=== PATIENT | male | born 1955 | race Caucasian/White ===

== ENCOUNTER → 2016-07-23 | Outpatient (CLI) | payer OTHER | LOC: BMCIMAGING 11:35 | PROVIDERS: ATTEND Family Medicine | DX: R05 Cough (principal) ==

== ENCOUNTER 2017-08-16 11:10 | Emergency (ER) | payer OTHER ==
--- NOTE | 2017-08-16 12:45 | EDPHY ---
H & P Stated Complaint: stephany hoffman with allergy to pcn at 11:00 Time Seen by Provider: 08/16/17 12:32 HPI/ROS: CHIEF COMPLAINT: "I feel fine" HISTORY OF PRESENT ILLNESS: 62-year-old male with history of right knee arthroplasty was at his dentist this morning for routine cleaning. They gave him oral amoxicillin 2 g and shortly after giving it to him saw that he had a listed penicillin allergy and recommend he go to the ER for evaluation. He is asymptomatic. He states that his listed penicillin allergy was due to an incident when he was in high school, was given penicillin and felt lightheaded, started itching. No history of anaphylaxis to penicillin. REVIEW OF SYSTEMS: A ten point review of systems was performed and is negative with the exception of the items mentioned in the HPI PAST MEDICAL & SURGICAL HISTORY: Right knee arthroplasty SOCIAL HISTORY: Nonsmoker. PHYSICAL EXAM (Prior to examination, patient consented to physical exam, hands were washed and my usual and customary physical exam procedures followed) 1) GENERAL: Well-developed, well-nourished, alert and oriented. Appears to be in no acute distress. Smiling, shakes my hand , appears well. Speaking full sentences 2) HEAD: Normocephalic, atraumatic 3) HEENT: Pupils equal, round, reactive to light bilaterally. Sclera anicteric. Airway patent. No trismus no drooling. No tonsillar or glossal enlargement. 4) NECK: Full range of motion, no meningeal signs. 5) LUNGS: Clear auscultation bilaterally, no wheezes, no rhonchi, no retractions. 6) HEART: Regular rate and rhythm, no murmur, no heave, no gallop. 7) ABDOMEN: No guarding, no rebound, no focal tenderness, negative McBurney's, negative Iraheta's, negative Rovsing's, negative peritoneal sign, 8) MUSCULOSKELETAL: Moving all extremities, no focal areas of tenderness, no obvious trauma. No peripheral edema or discoloration. 9) BACK: No CVA tenderness, no midline vertebral tenderness, no fluctuance, no step-off, no obvious trauma, no visual or palpable abnormality. 10) SKIN: No rash, no petechiae. No urticaria. 11) Psychiatric: Patient is oriented X 3, there is no agitation. DIFFERENTIAL DIAGNOSIS: In no particular order including but not limited to possible exposure to allergen, allergic reaction, anaphylaxis, urticaria - Personal History Current Tetanus/Diphtheria Vaccine: Unsure Current Tetanus Diphtheria and Acellular Pertussis (TDAP): Unsure Tetanus Vaccine Date: 2008 - Medical/Surgical History Hx Asthma: No Hx Chronic Respiratory Disease: No Hx Diabetes: No Hx Cardiac Disease: Yes Hx Renal Disease: No Hx Cirrhosis: No Hx Alcoholism: No Hx HIV/AIDS: No Hx Splenectomy or Spleen Trauma: No Other PMH: HX: DEPRESSION, GERD, VAL, L BBB - Social History Smoking Status: Never smoked Constitutional: Initial Vital Signs Temperature (C) 37 C 08/16/17 11:12 Heart Rate 77 08/16/17 11:12 Respiratory Rate 16 08/16/17 11:12 Blood Pressure 151/80 H 08/16/17 11:12 O2 Sat (%) 97 08/16/17 11:12 O2 Delivery Mode Room Air Allergies/Adverse Reactions: Penicillins Allergy (Verified 12/16/15 15:18) Home Medications: Medication Instructions Recorded ARIPiprazole [Abilify 2 mg (*)] 2 mg PO DAILY 09/03/15 DULoxetine [Cymbalta 60 MG (*)] 60 mg PO DAILY 09/03/15 Esomeprazole Magnesium [Nexium] 20 mg PO DAILY 09/03/15 Herbals/Supplements -Info Only 1 ea PO DAILY 09/03/15 Losartan Potassium [Cozaar 25 mg 25 mg PO DAILY 09/03/15 (*)] celeCOXIB [Celebrex (*)] 200 mg PO DAILY 09/03/15 lamoTRIgine [Lamictal] 200 mg PO DAILY 09/03/15 Acetaminophen [Tylenol 325mg (*)] 650 mg PO Q6HRS #0 tab 01/01/16 Aspirin [Aspirin 325 mg (*)] 325 mg PO DAILY #0 tab 01/01/16 HYDROmorphone HCL [Dilaudid 2 mg 2 - 4 mg PO Q4HRS PRN #120 tab 01/01/16 (*)] Sennosides/Docusate Sodium 1 - 2 tab PO BID #0 tab 01/01/16 [Senokot-S] celeCOXIB [Celebrex (*)] 200 mg PO DAILY #20 cap 01/01/16 Medical Decision Making ED Course/Re-evaluation: 12:40 p.m.: This patient has no evidence of allergic reaction. He was sent to the emergency department by his dentist for concerns that he might develop an allergic reaction. It has been approximately 2 hr since the patient ingested amoxicillin and he remains asymptomatic. The patient lives in [place] and I believe him to have decision-making capacity. This time I do not think that intervention is indicated from the emergency department. Think the patient can be discharged. He has been informed of the half life of amoxicillin and informed that should he develop any allergic reaction like symptoms he needs to call 911. He feels comfortable with this plan. I do not think that prophylactic H1 H2 blockers, steroids or epinephrine are indicated at this time. I saw this patient independently based on established practice protocols. Care of patient under supervision of secondary supervising physician Dr Rahman with whom I discussed case. Departure - Departure Disposition: Home, Routine, Self-Care Clinical Impression: Accidental drug ingestion Qualifiers: Encounter type: initial encounter Qualified Code(s): T50.901A - Poisoning by unspecified drugs, medicaments and biological substances, accidental ( unintentional), initial encounter Condition: Good Instructions: Allergy Testing (ED) Additional Instructions: If you developed itching, shortness of breath, rash, difficulty swallowing, difficulty breathing, call 911 Referrals: Helder Coats MD [Primary Care Provider] - 1-2 days without fail
[2017-08-16 13:02] VITALS: BP 140/91
== END 2017-08-16 13:01 | disposition home or self-care (01) ==
DX: T36.0X1A Poisoning by penicillins, accidental (unintentional), initial encounter (principal); Z79.82 Long term (current) use of aspirin

== ENCOUNTER → 2018-04-23 | Outpatient (CLI) | payer OTHER | LOC: BMCIMAGING 15:11 | PROVIDERS: ATTEND Internal Medicine | DX: R07.81 Pleurodynia (principal) ==